=== PATIENT | male | born 1990 | race Caucasian/White ===

== ENCOUNTER 2022-02-26 16:48 | Emergency (ER) | payer SELFPAY ==
[2022-02-26 16:55] VITALS: BP 143/87; PULSE 96; RESP 22; TEMP 36.8; O2SAT 100; BMI 24.9
[2022-02-26 17:20] LABS: Basophils # 0.1 10^3/uL (0.0-0.1); Basophils % 0.6 %; Eosinophils # 0.1 10^3/uL (0.0-0.8); Eosinophils % 0.5 %; Hematocrit 48.1 % (42.0-52.0); Hemoglobin 16.3 g/dL (11.7-16.6); Lymphocytes # 3.4 10^3/uL (0.8-4.8); Lymphocytes % 36.4 %; Mean Corpuscular HGB Conc 33.9 g/dL (30.0-36.0); Mean Corpuscular Hemoglobin 30.8 pg (28.0-34.0); Mean Corpuscular Volume 90.9 fl (80-94); Mean Platelet Volume 12.1 fL (7.4-10.4); Monocytes # 0.9 10^3/uL (0.2-0.9); Monocytes % 9.5 %; Neutrophils # 4.86 10^3/uL (1.8-7.7); Neutrophils % 52.6 %; Nucleated Red Blood Cells % 0 %; Platelet Count 350 10^3/cmm (130-400); Red Blood Count 5.29 10^6/uL (4.1-5.3); Red Cell Distribution Width 13.4 % (12.1-15.1); White Blood Count 9.3 10^3/uL (4.0-10.0)
--- NOTE | 2022-02-26 17:30 | W.ED.EXTPRO ---
HPI - Extremity Problem General: Chief complaint: Extremity Problem,Nontraumatic Stated complaint: ARM PAIN/ LEG NUMBNESS/ AMS Time Seen by Provider: 02/26/22 17:06 History of Present Illness: Patient comes in after a panic attack. States that he was driving down the road when he started to feel panicky and his hands clenched up on them. States he started hyperventilating and crying. States he has had this happen to him 1 other time in the past and was started on medication for it. Denies any other symptoms including no fever, cough, vomiting, diarrhea, chest pain, shortness of breath. Associated symptoms: Deny chest pain, fever(s) or rash Review of Systems Const: Denies: fever(s) or body aches Eyes: Denies: change in vision or blurry vision ENMT: Denies: throat pain or odynophagia Card: Denies: chest pain or palpitations Resp: Denies: dyspnea or productive cough GI: Denies: abdominal pain, nausea or vomiting : Denies: flank pain or dysuria Musc: Denies: neck pain or back pain Skin/Breast: Denies: rash or pruritus Neuro: Reports: numbness in extremities; Denies: headache(s) Psych: Reports: anxiety; Denies: change in appetite Endo: Denies: polyuria or excessive sweating Physical Exam Const: COMMON NORMALS: no acute distress, patient oriented x3, healthy appearing and alert HENMT: COMMON NORMALS: normocephalic and atraumatic HEAD & SCALP: normocephalic and atraumatic Eye: COMMON NORMALS: Equal, round and reactive pupils present and EOMs intact bilaterally PUPIL: Yes Equal, round and reactive pupils present Neck/C-Spine: COMMON NORMALS: full ROM and supple Resp: COMMON NORMALS: normal respiratory effort, No retractions and No use of accessory muscles Cardio: COMMON NORMALS: regular rhythm RHYTHM: regular rhythm OTHER: Tachycardia GI: COMMON NORMALS: Normal to inspection, nondistended, normoactive bowel sounds present, Soft to palpation and non-tender PALPATION: Yes Soft to palpation Back/Pelvis: COMMON NORMALS: thoracic and lumbar spine normal to inspection and no thoracic nor lumbar tenderness Extremity: COMMON NORMALS: normal to inspection and full ROM Neuro: COMMON NORMALS: patient oriented x3 SENSORIUM/ORIENTATION: Yes alert Psych: COMMON NORMALS: mental status grossly normal and cooperative Skin: COMMON NORMALS: no rashes or lesions noted and no wounds GENERAL SKIN EXAM: no rashes or lesions noted Course Vital Signs: Vital signs: Vital Signs Temperature 98.2 F 02/26/22 16:55 Pulse Rate 96 02/26/22 16:55 Respiratory Rate 22 H 02/26/22 16:55 Blood Pressure 143/87 02/26/22 16:55 Pulse Oximetry 100 02/26/22 16:55 MDM - Extremity (Nontraumatic) Medical Decision Making Patient comes in after a panic attack. States that he was driving down the road when he started to feel panicky and his hands clenched up on them. States he started hyperventilating and crying. States he has had this happen to him 1 other time in the past and was started on medication for it. Denies any other symptoms including no fever, cough, vomiting, diarrhea, chest pain, shortness of breath. Will give IV fluids, check basic labs, give a dose of Atarax, and reassess. On reassessment I talked to the patient about the test results. He states that over the last 4 days he drank 6 to 12 packs of beer. He thinks that may be what happened. Discharge home at this time with precautions to return for worsening or changing symptoms. Lab Data : 02/26/22 16:20 02/26/22 16:20 Laboratory Results WBC 9.3 10^3/uL (4.0-10.0) 02/26/22 16:20 RBC 5.29 10^6/uL (4.1-5.3) 02/26/22 16:20 Hgb 16.3 g/dL (11.7-16.6) 02/26/22 16:20 Hct 48.1 % (42.0-52.0) 02/26/22 16:20 MCV 90.9 fl (80-94) 02/26/22 16:20 MCH 30.8 pg (28.0-34.0) 02/26/22 16:20 MCHC 33.9 g/dL (30.0-36.0) 02/26/22 16:20 RDW 13.4 % (12.1-15.1) 02/26/22 16:20 Plt Count 350 10^3/cmm (130-400) 02/26/22 16:20 MPV 12.1 fL (7.4-10.4) H 02/26/22 16:20 Neut % (Auto) 52.6 % 02/26/22 16:20 Lymph % (Auto) 36.4 % 02/26/22 16:20 [place] % (Auto) 9.5 % 02/26/22 16:20 Eos % (Auto) 0.5 % 02/26/22 16:20 Baso % (Auto) 0.6 % 02/26/22 16:20 Neut # (Auto) 4.86 10^3/uL (1.8-7.7) 02/26/22 16:20 Lymph # (Auto) 3.4 10^3/uL (0.8-4.8) 02/26/22 16:20 [place] # (Auto) 0.9 10^3/uL (0.2-0.9) 02/26/22 16:20 Eos # (Auto) 0.1 10^3/uL (0.0-0.8) 02/26/22 16:20 Baso # (Auto) 0.1 10^3/uL (0.0-0.1) 02/26/22 16:20 Nucleated RBC % (auto) 0 % 02/26/22 16:20 Nucleated RBCs # 0.0 /100WBC 02/26/22 16:20 Sodium 139 mmol/L (136-145) 02/26/22 16:20 Potassium 3.7 mmol/L (3.5-5.1) 02/26/22 16:20 Chloride 99 mmol/L (98-107) 02/26/22 16:20 Carbon Dioxide 22 mmol/L (22-29) 02/26/22 16:20 Anion Gap 21.7 (5-19) H 02/26/22 16:20 BUN 13 mg/dL (6-20) 02/26/22 16:20 Creatinine 1.0 mg/dL (0.7-1.2) 02/26/22 16:20 GFR Calculation 87.7 mL/min (90-130) L 02/26/22 16:20 Glucose 129 mg/dL (65-115) H 02/26/22 16:20 Calculated Osmolality 290 mOsm/kg (285-295) 02/26/22 16:20 Calcium 9.6 mg/dL (8.5-10.5) 02/26/22 16:20 Discharge Plan Discharge Patient Disposition: Home Clinical Impression: Anxiety Condition: Stable Discharge Orders: Discharge ED (Routine); Ordered 02/26/22 Ordered By: Kaiser Mc Coding Level of Care Code ED Transmission Specialist for [facility] Fwd Exam Comprehensive
[2022-02-26 17:36] LABS: Anion Gap 21.7 (5-19); Blood Urea Nitrogen 13 mg/dL (6-20); Calcium 9.6 mg/dL (8.5-10.5); Carbon Dioxide 22 mmol/L (22-29); Chloride 99 mmol/L (98-107); Glomerular Filtration Rate 87.7 mL/min (90-130); Glucose 129 mg/dL (65-115); Osmolality Calculated 290 mOsm/kg (285-295); Potassium 3.7 mmol/L (3.5-5.1); Sodium 139 mmol/L (136-145)
[2022-02-26] MEDS: hyDROXYzine 25 mg Capsule PO (17:46)
[2022-02-26 18:21] VITALS: BP 141/78; PULSE 83; O2SAT 100
== END 2022-02-26 18:20 | disposition home or self-care (01) ==
PROVIDERS: Emergency Provider Emergency Medicine
DX: F41.9 Anxiety disorder, unspecified (principal)
CPT/HCPCS: 80048; 85025; 99283